=== PATIENT | female | born 1965 | race Hispanic/Latino ===

== ENCOUNTER 2021-01-17 12:26 | Emergency (ER) | payer OTHER ==
[~2021-01-17] VITALS: Ht 162.6 cm; Wt 106.6 kg
[2021-01-17] MEDS ORDERED: MECLIZINE HCL 25 MG TABLET PO SCH (13:00)
[2021-01-17 13:04] LABS: BASOPHILS % (AUTO) 0.4 % (0.0-5.0); EOSINOPHILS % (AUTO) 1.8 % (0.0-8.0); HEMATOCRIT 41.3 % (36-48); LYMPHOCYTES % (AUTO) 33.2 % (21.0-51.0); MEAN CORPUSCULAR HEMOGLOBIN 27.6 pg (27.0-33.0); MEAN CORPUSCULAR VOLUME 86.4 fL (79-99); MONOCYTES % (AUTO) 8.6 % (3.0-13.0); NEUTROPHILS % (AUTO) 55.6 % (40.0-77.0); PLATELET COUNT (AUTO) 225 K/uL (130-400); RED BLOOD CELL COUNT(AUTO) 4.78 MIL/uL (4.00-5.50); RED CELL DISTRIBUTION WIDTH 13.2 % (11.0-15.5); WHITE BLOOD COUNT (AUTO) 7.6 K/uL (4.8-10.8)
[2021-01-17 13:16] LABS: POTASSIUM 4.1 mmol/L (3.5-5.1)
[2021-01-17 13:26] LABS: ALBUMIN 3.4 g/dL (3.5-5.0); BILIRUBIN,TOTAL 0.2 mg/dL (0.2-1.0); MAGNESIUM 1.5 mg/dL (1.80-2.40); TOTAL PROTEIN, SERUM 7.7 g/dL (6.0-8.3)
[2021-01-17 13:51] LABS: APPEARANCE,URINE Clear (CLEAR); BILIRUBIN,URINE Negative (NEGATIVE); COLOR,URINE Yellow (YELLOW); GLUCOSE, URINE (UA) Negative (NEGATIVE); KETONES,URINE Negative (NEGATIVE); LEUKOCYTE ESTERASE ,URINE Trace (NEGATIVE); NITRATE,URINE Negative (NEGATIVE); OCCULT BLOOD,URINE Negative (NEGATIVE); PH,URINE 5.5 (5.0-8.0); PROTEIN,URINE Negative (NEGATIVE); UROBILINOGEN,URINE 0.2 mg/dL (0.2-1.0)
[2021-01-17 14:00] VITALS: BP 138/78
[2021-01-17 14:22] LABS: RBC,URINE 0-1 /HPF (0-1)
[2021-01-17 14:23] LABS: BACTERIA,URINE Rare /HPF (None Seen); SQUAMOUS EPITHELIAL CELL,UR 0-2 /HPF (0-2); WBC,URINE 0-1 /HPF (0-1)
[2021-01-17] MEDS ORDERED: IOHEXOL-350 75 ML VIAL IV ONE (14:59)
[2021-01-17] MEDS ORDERED: MECL-160 PO (17:00)
== END 2021-01-17 17:12 | disposition home or self-care (01) ==
LOC: EDH 12:26
DX: H81.10 Benign paroxysmal vertigo, unspecified ear (principal); E11.9 Type 2 diabetes mellitus without complications; I10 Essential (primary) hypertension; E78.00 Pure hypercholesterolemia, unspecified; E66.9 Obesity, unspecified; Z79.899 Other long term (current) drug therapy
CPT/HCPCS: 36415; 70450; 70496; 70498; 71045; 80053; 81001; 83735; 84484; 85025; 93005; 99285; Q9967

== ENCOUNTER 2022-03-09 11:36 | Emergency (ER) | payer OTHER ==
[~2022-03-09 11:36] MED LIST: MECL-160 PO
[2022-03-09 13:06] LABS: APPEARANCE,URINE CLEAR (CLEAR); BILIRUBIN,URINE NEGATIVE (NEGATIVE); COLOR,URINE YELLOW (YELLOW); GLUCOSE, URINE (UA) 100 mg/dL (NEGATIVE); KETONES,URINE 5 mg/dL (NEGATIVE); LEUKOCYTE ESTERASE ,URINE NEGATIVE Leu/uL (NEGATIVE); NITRATE,URINE NEGATIVE (NEGATIVE); OCCULT BLOOD,URINE LARGE (NEGATIVE); PROTEIN,URINE NEGATIVE (NEGATIVE); UROBILINOGEN,URINE 0.2 mg/dL (0.2-1.0)
[2022-03-09 13:07] LABS: BASOPHILS % (AUTO) 0.3 % (0.0-5.0); HEMATOCRIT 47.5 % (36-48); LYMPHOCYTES % (AUTO) 6.7 % (21.0-51.0); MEAN CORPUSCULAR HEMOGLOBIN 27.5 pg (27.0-33.0); MEAN CORPUSCULAR HGB CONC 33.1 g/dL (32.0-36.0); MEAN CORPUSCULAR VOLUME 83.3 fL (79-99); NEUTROPHILS % (AUTO) 87.7 % (40.0-77.0); PLATELET COUNT (AUTO) 304 K/uL (130-400); RED CELL DISTRIBUTION WIDTH 13.5 % (11.0-15.5)
[2022-03-09 13:15] LABS: ALBUMIN 3.5 g/dL (3.5-5.0); CREATININE 1.1 mg/dL (0.5-1.5); POTASSIUM 4.9 mmol/L (3.5-5.1); TOTAL PROTEIN, SERUM 7.6 g/dL (6.0-8.3)
[2022-03-09 13:20] LABS: BACTERIA,URINE Rare /HPF (None Seen); SQUAMOUS EPITHELIAL CELL,UR Rare /HPF (0-2)
[2022-03-09] MEDS ORDERED: INSULIN HUMULIN R 100 UNIT/ML 3ML IV ONE (14:00)
[2022-03-09] MEDS ORDERED: 0.9%NACL 1000ML 1,000 ML IV ONE (14:00)
[2022-03-09 14:30] VITALS: BP 157/77
== END 2022-03-09 15:35 | disposition home or self-care (01) ==
LOC: EDH 11:36
DX: E09.65 Drug or chemical induced diabetes mellitus with hyperglycemia (principal); T38.0X5A Adverse effect of glucocorticoids and synthetic analogues, initial encounter; E86.0 Dehydration; I10 Essential (primary) hypertension; E78.00 Pure hypercholesterolemia, unspecified; Z98.890 Other specified postprocedural states; Y92.89 Other specified places as the place of occurrence of the external cause
CPT/HCPCS: 99284; 96374; 71045; 96361; 80053; 85025; 82948 ×2; 81001; 36415; J1815; J7030

== ENCOUNTER 2022-03-22 23:50 | Inpatient (IN) | payer OTHER ==
[~2022-03-22] VITALS: Ht 162.6 cm; Wt 98.3 kg
[2022-03-23] MEDS ORDERED: MORPHINE 2 MG SYG IVP ONE (00:30)
[2022-03-23 00:52] LABS: BASOPHILS % (AUTO) 0.2 % (0.0-5.0); EOSINOPHILS % (AUTO) 0.8 % (0.0-8.0); LYMPHOCYTES % (AUTO) 15.9 % (21.0-51.0); MEAN CORPUSCULAR HEMOGLOBIN 27.2 pg (27.0-33.0); MEAN CORPUSCULAR HGB CONC 32.5 g/dL (32.0-36.0); MEAN CORPUSCULAR VOLUME 83.7 fL (79-99); MONOCYTES % (AUTO) 7.3 % (3.0-13.0); NEUTROPHILS % (AUTO) 75.5 % (40.0-77.0); PLATELET COUNT (AUTO) 166 K/uL (130-400); RED BLOOD CELL COUNT(AUTO) 4.78 MIL/uL (4.00-5.50); RED CELL DISTRIBUTION WIDTH 13.7 % (11.0-15.5); WHITE BLOOD COUNT (AUTO) 11.9 K/uL (4.8-10.8)
[2022-03-23 01:01] LABS: CREATININE 0.9 mg/dL (0.5-1.5); POTASSIUM 4.1 mmol/L (3.5-5.1)
[2022-03-23 01:06] LABS: ALBUMIN 3.6 g/dL (3.5-5.0); INR 0.95 (0.85-1.15); PROTHROMBIN TIME 10.4 SEC (9.6-11.6); TOTAL PROTEIN, SERUM 7.4 g/dL (6.0-8.3)
[2022-03-23 01:08] LABS: PARTIAL THROMBOPLASTIN TIME 22.3 SEC (26.3-35.5)
[2022-03-23] MEDS ORDERED: DOCUSATE SODIUM 100 MG CAP PO PRN (02:00)
[2022-03-23] MEDS ORDERED: HYDRALAZINE 20MG/ML VIAL IV PRN (02:00)
[2022-03-23] MEDS ORDERED: LACTULOSE 20 GM/30 ML UDCUP PO PRN (02:00)
[2022-03-23] MEDS ORDERED: CLONIDINE HCL 0.1 MG TABLET PO PRN (02:00)
[2022-03-23] MEDS ORDERED: ONDANSETRON 4MG INJ IVP PRN (02:00)
[2022-03-23] MEDS: LACTATED RINGERS 1000ML 1,000 ML IV SCH ×2 (02:17→05:44)
[2022-03-23 04:30] VITALS: BP 126/76
[2022-03-23] MEDS ORDERED: MELO-106 PO (05:13)
[2022-03-23] MEDS ORDERED: SITA100T12 PO (05:13)
[2022-03-23] MEDS ORDERED: PIOG30TA70 PO (05:13)
[2022-03-23] MEDS ORDERED: DILT30 PO (05:13)
[2022-03-23] MEDS ORDERED: ASPI-1443 PO (05:13)
[2022-03-23] MEDS ORDERED: VITAD50000 PO (05:13)
[2022-03-23] MEDS ORDERED: VALS80TA30 PO (05:13)
[2022-03-23] MEDS ORDERED: METF-446 PO (05:13)
[2022-03-23] MEDS ORDERED: METO100T14 PO (05:13)
[2022-03-23] MEDS ORDERED: ATOR40TA69 PO (05:13)
[2022-03-23] MEDS ORDERED: DEXTROSE 50%-WATER 50 ML DISP.SYRIN IV PRN (06:30)
[2022-03-23] MEDS ORDERED: MECLIZINE HCL 25 MG TABLET PO PRN (06:30)
[2022-03-23] MEDS ORDERED: ATORVASTATIN 40 MG TABLET PO SCH (06:30)
[2022-03-23] MEDS ORDERED: GLUCAGON 1MG KIT 1 MG ML IM PRN (06:30)
[2022-03-23] MEDS: INSULIN HUMULIN R 100 UNIT/ML 3ML SQ SCH ×4 (06:34→21:00)
[2022-03-23 07:10] LABS: HEMOGLOBIN A1C 8.4 % (4.0-6.0)
[2022-03-23 08:00] VITALS: BP 136/73
[2022-03-23] MEDS: LOSARTAN 50 MG TABLET PO SCH (09:12)
[2022-03-23] MEDS: METOPROLOL TARTRATE 50 MG TAB PO SCH ×2 (09:12→21:30)
[2022-03-23] MEDS: DILTIAZEM 60MG TAB PO SCH ×2 (09:12→21:31)
[2022-03-23] MEDS: ACETAMINOPHEN 325 MG TAB PO PRN ×2 (09:23→21:34)
[2022-03-23 12:00] VITALS: BP 127/70
[2022-03-23 16:00] VITALS: BP 104/59
[2022-03-23 21:40] VITALS: BP 124/66
[2022-03-24] VITALS (15 sets, daily range): BP systolic 116–149; BP diastolic 48–95
[2022-03-24] MEDS: GABAPENTIN 100 MG CAPSULE PO SCH ×4 (00:19→22:45)
[2022-03-24] MEDS ORDERED: TRAMADOL HCL 50 MG TABLET PO PRN (00:30)
[2022-03-24 04:27] LABS: BASOPHILS % (AUTO) 0.3 % (0.0-5.0); EOSINOPHILS % (AUTO) 1.4 % (0.0-8.0); HEMATOCRIT 34.3 % (36-48); LYMPHOCYTES % (AUTO) 32.3 % (21.0-51.0); MEAN CORPUSCULAR HEMOGLOBIN 27.8 pg (27.0-33.0); MEAN CORPUSCULAR HGB CONC 32.9 g/dL (32.0-36.0); MEAN CORPUSCULAR VOLUME 84.5 fL (79-99); MONOCYTES % (AUTO) 9.5 % (3.0-13.0); NEUTROPHILS % (AUTO) 56.1 % (40.0-77.0); PLATELET COUNT (AUTO) 135 K/uL (130-400); RED BLOOD CELL COUNT(AUTO) 4.06 MIL/uL (4.00-5.50)
[2022-03-24 04:40] LABS: CREATININE 0.6 mg/dL (0.5-1.5); MAGNESIUM 1.5 mg/dL (1.80-2.40); PHOSPHORUS 3.5 mg/dL (2.5-4.9)
[2022-03-24] MEDS: LACTATED RINGERS 1000ML 1,000 ML IV SCH ×2 (04:40→08:39)
[2022-03-24] MEDS: INSULIN HUMULIN R 100 UNIT/ML 3ML SQ SCH ×4 (06:46→21:00)
[2022-03-24] MEDS: ENOXAPARIN SODIUM 40 MG/0.4 ML SYRINGE SQ SCH (08:23)
[2022-03-24] MEDS: LOSARTAN 50 MG TABLET PO SCH (08:29)
[2022-03-24] MEDS: DILTIAZEM 60MG TAB PO SCH ×2 (08:29→22:45)
[2022-03-24] MEDS: MAGNESIUM 2GM PREMIX 50ML 50 ML IV PRN (12:10)
[2022-03-24] MEDS: METOPROLOL TARTRATE 50 MG TAB PO SCH ×2 (13:24→22:45)
[2022-03-24] MEDS ORDERED: ONDANSETRON 4MG INJ ONE (15:55)
[2022-03-24] MEDS ORDERED: FENTANYL CITRATE PF 50 MCG/1 ML 2ML VIAL ONE (15:55)
[2022-03-24] MEDS ORDERED: GLYCOPYRROLATE 1 MG/5 ML SYRINGE ONE (15:55)
[2022-03-24] MEDS ORDERED: LIDOCAINE PF 100MG/5ML (2%) SYRINGE 5ML ONE (15:55)
[2022-03-24] MEDS ORDERED: SUCCINYLCHOLINE CHLORIDE 20 MG/ML 10 ML VIAL ONE (15:55)
[2022-03-24] MEDS ORDERED: DEXAMETHASONE SOD PHOSPHATE 10MG/ML 1ML VIAL ONE (15:55)
[2022-03-24] MEDS ORDERED: NEOSTIGMINE 5MG/5ML SYR IV ONE (15:56)
[2022-03-24] MEDS ORDERED: PROPOFOL 10 MG/ML 20ML VIAL IV ONE (15:56)
[2022-03-24] MEDS ORDERED: MIDAZOLAM HCL 1 MG/ML 2ML VIAL ONE (15:56)
[2022-03-24] MEDS ORDERED: ROCURONIUM 10MG/1ML SYR 10 MG/ML ML ONE (15:56)
[2022-03-24] MEDS ORDERED: ROPIVACAINE 0.5% 5MG/ML 30ML IJ ONE (16:03)
[2022-03-24] MEDS ORDERED: EPHEDRINE SULFATE 50 MG/ML AMPULE ONE (17:40)
[2022-03-24] MEDS ORDERED: MEPERIDINE-PF 25 MG/ML SYG ONE (18:37)
[2022-03-25] VITALS: BP 142/95
[2022-03-25] MEDS: CEFAZOLIN SODIUM 2 GM VIAL IVP SCH ×2 (03:45→13:09)
[2022-03-25] MEDS ORDERED: CEFAZOLIN SODIUM 2 GM VIAL ONE ×2 (03:46→13:06)
[2022-03-25 04:00] VITALS: BP 115/64
[2022-03-25] MEDS ORDERED: HYDROCODONE/ACETAMINOPHEN 5/325 MG TAB PO PRN (05:00)
[2022-03-25] MEDS ORDERED: MORPHINE 4 MG SYG IVP PRN (05:00)
[2022-03-25] MEDS: MAGNESIUM 2GM PREMIX 50ML 50 ML IV PRN (06:01)
[2022-03-25] MEDS: LACTATED RINGERS 1000ML 1,000 ML IV SCH ×2 (06:07→07:20)
[2022-03-25] MEDS: INSULIN HUMULIN R 100 UNIT/ML 3ML SQ SCH ×4 (07:30→21:54)
[2022-03-25 07:45] VITALS: BP 111/77
[2022-03-25] MEDS: DILTIAZEM 60MG TAB PO SCH ×2 (09:21→21:38)
[2022-03-25] MEDS: GABAPENTIN 100 MG CAPSULE PO SCH ×3 (09:22→21:39)
[2022-03-25] MEDS: ENOXAPARIN SODIUM 40 MG/0.4 ML SYRINGE SQ SCH (09:22)
[2022-03-25] MEDS: METOPROLOL TARTRATE 50 MG TAB PO SCH ×2 (09:22→21:38)
[2022-03-25] MEDS: LOSARTAN 50 MG TABLET PO SCH (09:22)
[2022-03-25 11:50] VITALS: BP 155/86
[2022-03-25] MEDS ORDERED: GABA100C PO (15:53)
[2022-03-25 16:00] VITALS: BP 118/67
[2022-03-25 19:00] VITALS: BP 159/73
[2022-03-25] MEDS: KETOROLAC 15MG/ML VIAL (15MG/ML) IV PRN (21:41)
[2022-03-26] VITALS: BP 135/77
[2022-03-26 04:00] VITALS: BP 133/67
[2022-03-26] MEDS: INSULIN HUMULIN R 100 UNIT/ML 3ML SQ SCH ×2 (06:06→11:30)
[2022-03-26 08:00] VITALS: BP 137/85
[2022-03-26] MEDS: MAGNESIUM 2GM PREMIX 50ML 50 ML IV PRN (08:55)
[2022-03-26] MEDS: DILTIAZEM 60MG TAB PO SCH (08:56)
[2022-03-26] MEDS: METOPROLOL TARTRATE 50 MG TAB PO SCH (08:56)
[2022-03-26] MEDS: GABAPENTIN 100 MG CAPSULE PO SCH ×2 (08:56→16:19)
[2022-03-26] MEDS: LOSARTAN 50 MG TABLET PO SCH (08:56)
[2022-03-26] MEDS: ENOXAPARIN SODIUM 40 MG/0.4 ML SYRINGE SQ SCH (08:57)
[2022-03-26] MEDS: LACTATED RINGERS 1000ML 1,000 ML IV SCH (08:57)
[2022-03-26] MEDS: KETOROLAC 15MG/ML VIAL (15MG/ML) IV PRN (08:57)
[2022-03-26] MEDS ORDERED: SITAGLIPTIN PHOSPHATE 100 MG PO SCH (09:00)
[2022-03-26] MEDS ORDERED: CHOLECALCIFEROL 5000 UNIT PO SCH (09:00)
[2022-03-26] MEDS ORDERED: PIOGLITAZONE 30MG TAB PO SCH (09:00)
[2022-03-26] MEDS ORDERED: ASPIRIN 81 MG EC TAB PO SCH (09:00)
[2022-03-26] MEDS ORDERED: MELOXICAM 7.5 MG TABLET PO SCH (09:00)
[2022-03-26 12:00] VITALS: BP 139/82
== END 2022-03-26 15:00 | disposition home or self-care (01) | DRG 492 ==
LOC: EDH 23:50 → EDHIP 03-23 01:58 → OBSVTOIN 03-23 01:58 → 4BH 03-23 04:25 → 4AH 03-24 15:48
PROVIDERS: ADMIT Internal Medicine Critical Care Medicine; ATTEND Internal Medicine Critical Care Medicine
PROC: 0PSG04Z Reposition Left Humeral Shaft with Internal Fixation Device, Open Approach (ICD-10-PCS; principal; 2022-03-24 16:45)
DX: S42.292A Other displaced fracture of upper end of left humerus, initial encounter for closed fracture (principal); U07.1 COVID-19; W01.0XXA Fall on same level from slipping, tripping and stumbling without subsequent striking against object, initial encounter; E11.65 Type 2 diabetes mellitus with hyperglycemia; I10 Essential (primary) hypertension; E66.01 Morbid (severe) obesity due to excess calories; Z68.37 Body mass index [BMI] 37.0-37.9, adult; Y93.89 Activity, other specified; Y92.89 Other specified places as the place of occurrence of the external cause; Y99.8 Other external cause status
CPT/HCPCS: 36415; 71045; 73030; 80048; 80053; 82948; 83036; 83735; 84100; 85025; 85610; 85730; 87635; G0378; J0330; J1100; J1650; J1815; J1885; J2001; J2175; J2250; J2270; J2405; J2704; J2710; J2795; J3010; J3475; J3490; J7030; J7120